=== PATIENT | male | born 1985 | race Caucasian/White ===

== ENCOUNTER 2016-11-05 13:03 | Emergency (ER) | payer OTHER ==
[~2016-11-05] VITALS: Ht 170.2 cm; Wt 72.6 kg
[2016-11-05] MEDS: NS IV 1000 ML 1,000 ML IV ONE ×2 (10:00→16:00)
[2016-11-05] MEDS ORDERED: ONDANSETRON 4 MG/2 ML (SDV) Z0FRAN ONE (13:14)
[2016-11-05] MEDS ORDERED: fentaNYL INJECTION 100 MCG/2 ML AMP ONE (13:17)
[2016-11-05] MEDS ORDERED: NS IV 1000 ML 1,000 ML IV ONE (13:20)
[2016-11-05] MEDS ORDERED: fentaNYL INJECTION 100 MCG/2 ML AMP IVP STA (13:20)
[2016-11-05 13:28] LABS: BASOPHILS % (AUTO) 0 % (0-10); EOSINOPHILS % (AUTO) 0 % (0-10); LYMPHOCYTES # (AUTO) 1.5 X 10^3 (1.0-4.0); LYMPHOCYTES % (AUTO) 8 % (12-44); MEAN CORPUSCULAR HEMOGLOBIN 29 PG (25-34); MEAN CORPUSCULAR HGB CONC 35 G/DL (32-36); MEAN CORPUSCULAR VOLUME 83 FL (80-99); MEAN PLATELET VOLUME 9.6 FL (7.4-10.4); MONOCYTES # (AUTO) 0.9 X 10^3 (0.0-1.0); MONOCYTES % (AUTO) 4 % (0-12); NEUTROPHILS # (AUTO) 17.5 X 10^3 (1.8-7.8); NEUTROPHILS % (AUTO) 88 % (42-75); PLATELET COUNT 242 10^3/uL (130-400); RED BLOOD COUNT 5.46 10^6/uL (4.35-5.85); RED CELL DISTRIBUTION WIDTH 13.4 % (10.0-14.5); WHITE BLOOD COUNT 19.8 10^3/uL (4.3-11.0)
--- NOTE | 2016-11-05 13:38 | ED Abdominal Pain ---
General Chief Complaint: Abdominal/GI Problems Stated Complaint: ABD PAIN Source of Information: Patient Exam Limitations: No Limitations History of Present Illness Time Seen By Provider: 13:20 Initial Comments Here with severe right upper quadrant abdominal pain that started about minutes after trying to eat this afternoon. He's had several episodes of vomiting and pain associated with that. Denies fever or chills. States that he does have intermittent pain like this but has never had anything so severe. Timing/Duration: 1 Hour Severity/Quality: Moderate, Severe, Aching Location: RUQ Radiation: Back Activities at Onset: None Associated Symptoms: No Back Pain, No Chest Pain, No Fever/Chills, Nausea/ Vomiting, No Weakness Allergies and Home Medications Allergies Coded Allergies: No Known Drug Allergies (Unverified , 11/05/16) Home Medications No Active Prescriptions or Reported Meds Review of Systems Constitutional: see HPI EENTM: No Symptoms Reported Respiratory: No Symptoms Reported Cardiovascular: No Symptoms Reported Gastrointestinal: See HPI, Abdominal Pain, Nausea, Denies Rectal Bleeding, Vomiting Genitourinary: No Symptoms Reported Musculoskeletal: no symptoms reported Skin: no symptoms reported Psychiatric/Neurological: No Symptoms Reported All Other Systems Reviewed Negative Unless Noted: Yes Past Piuddpy-Sfjsxr-Ykwgdt Hx Patient Social History Alcohol Use: Denies Use Recreational Drug Use: No Smoking Status: Never a Smoker Recent Foreign Travel: No Contact w/Someone Who Travel: No Recent Hopitalizations: No Seasonal Allergies Seasonal Allergies: No Surgeries HX Surgeries: Yes (spinal stimulator) Surgeries: Appendectomy Respiratory Hx Respiratory Disorders: No Cardiovascular Hx Cardiac Disorders: No Neurological Hx Neurological Disorders: No Genitourinary Hx Genitourinary Disorders: No Gastrointestinal Hx Gastrointestinal Disorders: No Musculoskeletal Hx Musculoskeletal Disorders: Yes Musculoskeletal Disorders: Chronic Back Pain Reviewed Nursing Assessment Reviewed/Agree w Nursing PMH: Yes Family Medical History Significant Family History: No Pertinent Family Hx Physical Exam Vital Signs VS - Last 72 Hours, by Label 11/05/16 13:30 Temp 97.2 Pulse 90 Resp 20 B/P (MAP) 155/93 Pulse Ox 99 Capillary Refill : General Appearance: WD/WN, no apparent distress HEENT: PERRL/EOMI, pharynx normal Neck: full range of motion, supple Respiratory: lungs clear, normal breath sounds Cardiovascular: regular rate, rhythm, no murmur Gastrointestinal: soft, tenderness (right upper quadrant), No mass Extremities: non-tender, normal inspection Back: normal inspection, no CVA tenderness, no vertebral tenderness Neurologic/Psychiatric: alert, oriented x 3 Skin: normal color, warm/dry Progress/Results/Core Measures Results/Orders Lab Results Laboratory Tests Test 11/05/16 13:15 11/05/16 14:15 Range/Units White Blood Count 19.8 H 4.3-11.0 10^3/uL Red Blood Count 5.46 4.35-5.85 10^6/uL Hemoglobin 15.9 13.3-17.7 G/DL Hematocrit 46 40-54 % Mean Corpuscular Volume 83 80-99 FL Mean Corpuscular Hemoglobin 29 25-34 PG Mean Corpuscular Hemoglobin Concent 35 32-36 G/DL Red Cell Distribution Width 13.4 10.0-14.5 % Platelet Count 242 130-400 10^3/uL Mean Platelet Volume 9.6 7.4-10.4 FL Neutrophils (%) (Auto) 88 H 42-75 % Lymphocytes (%) (Auto) 8 L 12-44 % Monocytes (%) (Auto) 4 0-12 % Eosinophils (%) (Auto) 0 0-10 % Basophils (%) (Auto) 0 0-10 % Neutrophils # (Auto) 17.5 H 1.8-7.8 X 10^3 Lymphocytes # (Auto) 1.5 1.0-4.0 X 10^3 Monocytes # (Auto) 0.9 0.0-1.0 X 10^3 Eosinophils # (Auto) 0.0 0.0-0.3 10^3/uL Basophils # (Auto) 0.0 0.0-0.1 10^3/uL Neutrophils % (Manual) 88 % Lymphocytes % (Manual) 9 % Monocytes % (Manual) 3 % Band Neutrophils % Blood Morphology Comment NORMAL Sodium Level 141 135-145 MMOL/L Potassium Level 3.8 3.6-5.0 MMOL/L Chloride Level 105 98-107 MMOL/L Carbon Dioxide Level 24 21-32 MMOL/L Anion Gap 12 5-14 MMOL/L Blood Urea Nitrogen 16 7-18 MG/DL Creatinine 1.01 0.60-1.30 MG/DL Estimat Glomerular Filtration Rate > 60 BUN/Creatinine Ratio 16 Glucose Level 123 H 70-105 MG/DL Calcium Level 9.9 8.5-10.1 MG/DL Magnesium Level 2.5 H 1.8-2.4 MG/DL Total Bilirubin 0.7 0.1-1.0 MG/DL Aspartate Amino Transf (AST/SGOT) 22 5-34 U/L Alanine Aminotransferase (ALT/SGPT) 18 0-55 U/L Alkaline Phosphatase 59 40-136 U/L Total Protein 7.7 6.4-8.2 G/DL Albumin 5.2 H 3.2-4.5 G/DL Amylase Level 29 25-125 U/L Lipase 9 8-78 U/L Urine Color YELLOW Urine Clarity CLEAR Urine pH 6 5-9 Urine Specific [place] 1.025 H 1.016-1.022 Urine Protein 2+ H NEGATIVE Urine Glucose (UA) NEGATIVE NEGATIVE Urine Ketones 2+ H NEGATIVE Urine Nitrite NEGATIVE NEGATIVE Urine Bilirubin NEGATIVE NEGATIVE Urine Urobilinogen NORMAL NORMAL MG/DL Urine Leukocyte Esterase NEGATIVE NEGATIVE Urine RBC (Auto) NEGATIVE NEGATIVE Urine RBC NONE /HPF Urine WBC NONE /HPF Urine Crystals NONE /LPF Urine Bacteria NEGATIVE /HPF Urine Casts NONE /LPF Urine Mucus MODERATE H /LPF Urine Culture Indicated NO My Orders Orders - KADEN DOMINGO MD Ondansetron Injection (Zofran Injectio (11/05/16 13:14) Saline Lock/Iv-Start (11/05/16 13:20) Ns Iv 1000 Ml (Sodium Chloride 0.9%) (11/05/16 13:20) Amylase (11/05/16 13:20) Cbc With Automated Diff (11/05/16 13:20) Comprehensive Metabolic Panel (11/05/16 13:20) Lipase (11/05/16 13:20) Magnesium (11/05/16 13:20) Ua Culture If Indicated (11/05/16 13:20) Fentanyl Injection (Sublimaze Injection (11/05/16 13:20) Fentanyl Injection (Sublimaze Injection (11/05/16 13:17) Manual Differential (11/05/16 13:15) Us Gallbladder [id number] (11/05/16 13:42) Fentanyl Injection (Sublimaze Injection (11/05/16 13:45) Ct Abdomen/Pelvis W (11/05/16 14:46) Hydromorphone Injection (Dilaudid Inject (11/05/16 15:22) Saline Lock/Iv-Start (11/05/16 15:22) Ns Iv 1000 Ml (Sodium Chloride 0.9%) (11/05/16 15:22) Ketorolac Injection (Toradol Injection) (11/05/16 15:22) Hydromorphone Injection (Dilaudid Inject (11/05/16 15:19) Ketorolac Injection (Toradol Injection) (11/05/16 15:20) Iohexol Injection (Omnipaque 350 Mg/Ml 1 (11/05/16 15:45) Ns (Ivpb) (Sodium Chloride 0.9% Ivpb Bag (11/05/16 15:45) Ondansetron Injection (Zofran Injectio (11/05/16 16:45) Famotidine Injection (Pepcid Injection) (11/05/16 16:36) Pantoprazole Injection (Protonix Injecti (11/05/16 16:45) Medications Given in ED Current Medications Medications Dose Ordered Sig/Karen Route Start Time Stop Time Status Last Admin Dose Admin Fentanyl Citrate 75 mcg ONCE ONCE IVP 11/05/16 13:45 11/05/16 13:46 DC 11/05/16 13:40 75 MCG Iohexol 100 ml ONCE ONCE IV 11/05/16 15:45 11/05/16 15:46 DC 11/05/16 15:34 100 ML Ondansetron HCl 4 mg STK-MED ONCE .ROUTE 11/05/16 13:14 11/05/16 13:18 DC 11/05/16 13:20 8 MG Sodium Chloride 100 ml ONCE ONCE IV 11/05/16 15:45 11/05/16 15:46 DC 11/05/16 15:34 80 ML Sodium Chloride 1,000 ml @ 0 mls/hr Q0M ONCE IV 11/05/16 13:20 11/05/16 13:22 DC 11/05/16 13:29 1,000 MLS/HR Sodium Chloride 1,000 ml @ 0 mls/hr Q0M ONCE IV 11/05/16 15:22 11/05/16 15:23 DC 11/05/16 16:00 1,000 MLS/HR Vital Signs/I&O Vital Sign - Last 12Hours 11/05/16 13:30 Temp 97.2 Pulse 90 Resp 20 B/P (MAP) 155/93 Pulse Ox 99 Progress Note : Progress Note Seen and evaluated. IV, labs, UA, normal saline 1 L bolus, Zofran 8 mg IV and fentanyl 50 g IV ordered. Repeat fentanyl 75 g IV for persistent pain. This did help his pain. Ultrasound gallbladder ordered. This was negative. UA is still pending and kidney stones are a consideration. Anticipate CT but we will wait for UA studies to determine type. CT abdomen and pelvis with contrast ordered as UA negative for blood. Dilaudid 1 mg IV for return of significant pain ordered. 1645: CT negative and pain resolved. Second liter of normal saline ordered due to 2+ ketones in urine and probable dehydration. We will give Protonix and Pepcid IV as well as repeat Zofran due to his concerns for nausea and he will have a trip back to [facility]. There is concerns about potentially slow gallbladder versus gastritis/ulcers. Patient does chew tobacco and does have a fair amount of stress related to his medical problems. Patient will follow-up with the [place] clinic tomorrow for surgical referral and further evaluation of gallbladder as indicated. Discharged home with return precautions. Patient verbalize understanding instructions and agreement with plan. Diagnostic Imaging Diagonstic Imaging: Ultrasound Plain Films/CT/US/NM/MRI: abdomen Comments VIA [facility]. [place], [place] NAME: RUKHSANA ALMARAZ [facility] REC#: [id number] PT STATUS: REG ER : 1985 PHYSICIAN: KADEN DOMINGO MD ADMIT DATE: 11/05/16/ER Draft Date of Exam:11/05/16 US GALLBLADDER [id number] PROCEDURE: US Gallbladder. TECHNIQUE: Multiple real-time grayscale images were obtained over the right upper quadrant in various projections. INDICATION: Right upper quadrant pain and tenderness. FINDINGS: The visualized portions of the pancreas appear unremarkable. The liver is fairly homogeneous with no focal lesion. Hepatopetal flow in the portal vein is seen. The gallbladder demonstrates no stones or wall thickening. No pericholecystic fluid. Sonographic Edward's sign is reportedly negative. The CBD is obscured by bowel gas. No fluid collection in the upper right abdomen is seen. The right kidney is 9.4 cm in length with no hydronephrosis or focal lesion. IMPRESSION: No gallstones or evidence of cholecystitis. Dictated on workstation # [id number] Dict: 11/05/16 1413 Trans: 11/05/16 1420 [id number] Interpreted by: MIKE GILBERT MD Electronically signed by: Sasha Imaging: CT Plain Films/CT/US/NM/MRI: abdomen, pelvis Comments VIA [facility]. [place], [place] NAME: RUKHSANA ALMARAZ [facility] REC#: [id number] PT STATUS: REG ER : 1985 PHYSICIAN: KADEN DOMINGO MD ADMIT DATE: 11/05/16/ER Draft Date of Exam:11/05/16 CT ABDOMEN/PELVIS W PROCEDURE: CT abdomen and pelvis with contrast. TECHNIQUE: Multiple contiguous axial images were obtained through the abdomen and pelvis after administration of intravenous contrast. INDICATION: Severe right-sided mid abdominal pain. Pressure pushing up into the diaphragm with nausea and vomiting. CORRELATION STUDY: None. FINDINGS: LOWER THORAX: Clear. LIVER: Unremarkable. GALLBLADDER: Gallbladder has a relatively unremarkable appearance. Trace pericholecystic fluid, however, is not excluded. No definitive gallstones or gallbladder wall thickening. Common bile duct appears unremarkable. SPLEEN: Unremarkable. PANCREAS: Unremarkable. ADRENAL GLANDS: Unremarkable. KIDNEYS: Normal configuration. No calcification or obstruction. ABDOMINAL AORTA: Unremarkable, nonaneurysmal. GASTROINTESTINAL TRACT: There does appear to be likely suture line of the cecum suspect for prior appendectomy. Stomach is relatively decompressed. Small bowel is unremarkable. Colon is unremarkable without evidence for obstruction or inflammation. No abdominal ascites or free air. There is a thoracic spine stimulator present extending above the area imaged. This does result in metallic artifact over the left abdomen. URINARY BLADDER: Unremarkable. REPRODUCTIVE: Prostate gland unremarkable. OSSEOUS STRUCTURES: No acute abnormality. IMPRESSION: Very questionable pericholecystic fluid. However, no suggestion of this on gallbladder ultrasound imaging. Overall negative for acute findings in the abdomen and/or pelvis on CT imaging. Dictated on workstation # [id number] Dict: 11/05/16 1555 Trans: 11/05/16 1614 PJE [id number] Interpreted by: MERI WOOD DO Electronically signed by: Departure Impression Impression: Primary Impression: Right upper quadrant abdominal pain Disposition: 01 HOME, SELF-CARE Condition: Improved Departure-Patient Inst. Decision time for Depature: 17:00 Referrals: NO,LOCAL PHYSICIAN (PCP/Family) Primary Care Physician Patient Instructions: Acute Abdomen (Belly Pain), Adult (DC) Add. Discharge Instructions: All discharge instructions reviewed with patient and/or family. Voiced understanding. Clear liquid diet for 24 hours and then advance as tolerated. You may take Pepcid or the generic famotidine 20 mg daily as needed for stomach upset. You may also take omeprazole 20 mg daily for the next 2 weeks. It is important that you follow-up with your clinic tomorrow for recheck and further evaluation. Your gallbladder ultrasound was negative but you should consider HIDA scan. You can discussed this with your doctor. It is also a good idea to follow-up with a surgeon of your choice for upper endoscopy (scope) to evaluate for ulcerative disease. Return for worse pain, fever, vomiting, weakness, breathing problems or other concerns as needed. Scripts No Active Prescriptions or Reported Meds KADEN DOMINGO MD November 05, 2016 13:37
[2016-11-05] MEDS ORDERED: fentaNYL INJECTION 100 MCG/2 ML AMP IVP ONE (13:45)
[2016-11-05 13:51] LABS: ALANINE AMINOTRANSFERASE 18 U/L (0-55); ALBUMIN 5.2 G/DL (3.2-4.5); AMYLASE 29 U/L (25-125); ANION GAP 12 MMOL/L (5-14); ASPARTATE AMINO TRANSFERASE 22 U/L (5-34); BILIRUBIN,TOTAL 0.7 MG/DL (0.1-1.0); BLOOD UREA NITROGEN 16 MG/DL (7-18); BUN/CREATININE RATIO 16; CALCIUM 9.9 MG/DL (8.5-10.1); CARBON DIOXIDE 24 MMOL/L (21-32); CHLORIDE 105 MMOL/L (98-107); CREATININE SERUM 1.01 MG/DL (0.60-1.30); GFR ESTIMATED > 60; GLUCOSE 123 MG/DL (70-105); LIPASE 9 U/L (8-78); MAGNESIUM 2.5 MG/DL (1.8-2.4); POTASSIUM 3.8 MMOL/L (3.6-5.0); SODIUM 141 MMOL/L (135-145); TOTAL PROTEIN 7.7 G/DL (6.4-8.2)
[2016-11-05 14:00] LABS: LYMPHOCYTES % (MANUAL) 9 %; NEUTROPHILS % (MANUAL) 88 %
--- NOTE | 2016-11-05 14:20 | Diagnostic Imaging Report ---
PROCEDURE: US Gallbladder. TECHNIQUE: Multiple real-time grayscale images were obtained over the right upper quadrant in various projections. INDICATION: Right upper quadrant pain and tenderness. FINDINGS: The visualized portions of the pancreas appear unremarkable. The liver is fairly homogeneous with no focal lesion. Hepatopetal flow in the portal vein is seen. The gallbladder demonstrates no stones or wall thickening. No pericholecystic fluid. Sonographic Edward's sign is reportedly negative. The CBD is obscured by bowel gas. No fluid collection in the upper right abdomen is seen. The right kidney is 9.4 cm in length with no hydronephrosis or focal lesion. IMPRESSION: No gallstones or evidence of cholecystitis. Dictated by: Dictated on workstation # [id number]
[2016-11-05 14:21] LABS: BILIRUBIN,URINE NEGATIVE (NEGATIVE); KETONES,URINE 2+ (NEGATIVE); LEUKOCYTE ESTERASE ,URINE NEGATIVE (NEGATIVE); NITRITE,URINE NEGATIVE (NEGATIVE); PH,URINE 6 (5-9); PROTEIN,URINE 2+ (NEGATIVE); UROBILINOGEN,URINE NORMAL (NORMAL)
[2016-11-05] MEDS ORDERED: HYDROmorphone (DILAUDID) 2 MG/ML VIAL ONE (15:19)
[2016-11-05] MEDS ORDERED: KETOROLAC 30 MG/ML VIAL ONE (15:20)
[2016-11-05] MEDS ORDERED: HYDROmorphone (DILAUDID) 2 MG/ML VIAL IVP STA (15:22)
[2016-11-05] MEDS ORDERED: KETOROLAC 30 MG/ML VIAL IVP STA (15:22)
[2016-11-05] MEDS ORDERED: NS 100 ML (IVPB) BAG IV ONE (15:45)
[2016-11-05] MEDS ORDERED: IOHEXOL 350 MG/ML 100 ML (OMNIPAQUE 350) VIAL IV ONE (15:45)
--- NOTE | 2016-11-05 16:14 | Diagnostic Imaging Report ---
PROCEDURE: CT abdomen and pelvis with contrast. TECHNIQUE: Multiple contiguous axial images were obtained through the abdomen and pelvis after administration of intravenous contrast. INDICATION: Severe right-sided mid abdominal pain. Pressure pushing up into the diaphragm with nausea and vomiting. CORRELATION STUDY: None. FINDINGS: LOWER THORAX: Clear. LIVER: Unremarkable. GALLBLADDER: Gallbladder has a relatively unremarkable appearance. Trace pericholecystic fluid, however, is not excluded. No definitive gallstones or gallbladder wall thickening. Common bile duct appears unremarkable. SPLEEN: Unremarkable. PANCREAS: Unremarkable. ADRENAL GLANDS: Unremarkable. KIDNEYS: Normal configuration. No calcification or obstruction. ABDOMINAL AORTA: Unremarkable, nonaneurysmal. GASTROINTESTINAL TRACT: There does appear to be likely suture line of the cecum suspect for prior appendectomy. Stomach is relatively decompressed. Small bowel is unremarkable. Colon is unremarkable without evidence for obstruction or inflammation. No abdominal ascites or free air. There is a thoracic spine stimulator present extending above the area imaged. This does result in metallic artifact over the left abdomen. URINARY BLADDER: Unremarkable. REPRODUCTIVE: Prostate gland unremarkable. OSSEOUS STRUCTURES: No acute abnormality. IMPRESSION: Very questionable pericholecystic fluid. However, no suggestion of this on gallbladder ultrasound imaging. Overall negative for acute findings in the abdomen and/or pelvis on CT imaging. Dictated by: Dictated on workstation # [id number]
[2016-11-05] MEDS ORDERED: FAMOTIDINE 20MG/2ML IV (PEPCID) IV STA (16:36)
[2016-11-05] MEDS ORDERED: PANTOPRAZOLE 40 MG/10 ML (PROTONIX) VIAL IV ONE (16:45)
[2016-11-05] MEDS ORDERED: ONDANSETRON 4 MG/2 ML (SDV) Z0FRAN IVP ONE (16:45)
[2016-11-05 17:09] VITALS: BP 140/82
== END 2016-11-05 17:09 | disposition home or self-care (01) ==
LOC: ER 13:06
DX: R10.11 Right upper quadrant pain (principal)
CPT/HCPCS: 36415; 74177; 76705; 80053; 81000; 82150; 83690; 83735; 85007; 85027